=== PATIENT | female | born 2000 | race Caucasian/White ===

== ENCOUNTER 2024-02-19 18:01 | Inpatient (IN) | payer OTHER ==
[2024-02-19 18:38] VITALS: BMI 36.8
[2024-02-19] MEDS ORDERED: Lidocaine 1% (PF) 30 ML VIAL SC PRN (20:16)
[2024-02-19] MEDS ORDERED: Tranexamic Acid 1,000 MG/10 ML VIAL IVP PRN (20:16)
[2024-02-19] MEDS ORDERED: Promethazine HCl 25 MG/ML VIAL IM PRN (20:16)
[2024-02-19] MEDS ORDERED: Carboprost 250 MCG/ML AMP IM PRN (20:16)
[2024-02-19] MEDS ORDERED: Misoprostol 200 MCG TAB PR PRN (20:16)
[2024-02-19] MEDS ORDERED: Docusate 100 MG CAP PO PRN (20:16)
[2024-02-19] MEDS ORDERED: Labetalol HCl 100 MG/20 ML VIAL SLOW IVP PRN ×2 (20:16)
[2024-02-19] MEDS ORDERED: hydrALAZINE 20 MG/ML VIAL SLOW IVP PRN ×3 (20:16)
[2024-02-19] MEDS ORDERED: Ondansetron PF 4 MG/2 ML Vial IVP PRN (20:16)
[2024-02-19] MEDS ORDERED: Oxytocin 30 units/NS 500 ML 500 ML IV SCH ×3 (20:30)
[2024-02-19] MEDS ORDERED: Lactated Ringer's 1,000 ML IV SCH (20:30)
[2024-02-19] MEDS ORDERED: Penicillin G Potassium 5 MILL.UNITS in Sodium Chloride 0.9% 100 ML IVPB SCH (20:30)
[2024-02-19 21:10] LABS: Bilirubin Neg (Negative); Blood, Urine 50 (Negative); Clarity Clear (Clear); Glucose, Urine (Dipstick) Normal (Negative); Ketone, Urine Negative (Negative); Leukocyte 25 (Negative); Nitrite Negative (Negative); Protein, Urine (Dipstick) Negative (Neg-Trace); Specific Gravity, Urine 1.015 (1.005-1.030); Urobilinogen Normal mg/dL (Less than 2)
[2024-02-19 21:18] LABS: Bacteria/HPF 2+ HPF (None Seen); CAUTI Indications for Culture Pregnancy; Mucous/LPF Rare LPF (<2+); RBC/HPF 0-3 HPF (0-3); Squamous Epithelial 0-3 HPF (0-3); WBC/HPF 0-3 HPF (0-3)
[2024-02-19 21:19] LABS: Urine Culture Reflex Yes Yes
[2024-02-19 21:25] LABS: Protein, Urine Random Quant Less than 10 mg/dL (1-14)
[2024-02-19 21:34] LABS: Hemoglobin 12.4 g/dL (12.0-15.5); Mean Corpuscular HGB CONC 34.4 g/dL (32.0-36.0); Mean Corpuscular Volume 84.1 fl (81.6-98.3); Platelet Count 241 10x3/uL (150-450); RBC Distribution Width 12.7 % (11.5-14.5); Red Blood Cell (RBC) Count 4.28 10x6/uL (3.90-5.03); White Blood Cell (WBC) Count 11.7 10x3/uL (3.5-10.5)
[2024-02-19 21:44] LABS: ALT (SGPT) 17 U/L (8-55); AST (SGOT) 19 U/L (5-34); Albumin 2.5 g/dL (3.5-5.0); Alkaline Phosphatase 164 U/L (40-110); Anion Gap 14 mmol/L (10-20); BUN (Urea Nitrogen) 12 mg/dL (7.0-18.7); Bilirubin, Total 0.3 mg/dL (0.2-1.2); Calc. Creatinine Clearance 176 mL/min (70-130); Carbon Dioxide 20 mmol/L (22-29); Chloride 106 mmol/L (98-107); Estimated GFR 105; Globulin 3.5 g/dL (2.4-3.5); Glucose 140 mg/dL (70-105); Potassium 3.7 mmol/L (3.5-5.1); Sodium 136 mmol/L (136-145)
[2024-02-19 22:58] LABS: Syphilis Antibody Nonreactive (Nonreactive); Syphilis Antibody Index 0.03 S/CO (<1.00 Non-Reactive)
[2024-02-19 22:59] LABS: HBsAg Index 0.26 S/CO (0-0.99); Hep B Surf Ag - L&D Non-Reactive S/CO (NonReactive)
[2024-02-19] MEDS: Cephalexin 500 MG CAP PO SCH (23:01)
[2024-02-20] MEDS ORDERED: Dextrose 5%-Lactated Ringers 1,000 ML IV SCH (08:00)
[2024-02-20] MEDS: Penicillin G Potassium 5 MILL.UNITS in Sodium Chloride 0.9% 100 ML IVPB SCH (09:44)
[2024-02-20] MEDS: Misoprostol 100 MCG TAB ONE ×2 (09:44→13:13)
[2024-02-20] MEDS: Penicillin G 2.5 MILL.units 2.5 MILL.UNITS in Premix 1 BAG IVPB SCH (13:14)
[2024-02-20] MEDS ORDERED: Fentanyl 100 MCG/2 ML VIAL SLOW IVP SCH (19:00)
[2024-02-20] MEDS: fentaNYL 50 mcg/mL 1 mL Vial SLOW IVP PRN (19:53)
[2024-02-20] MEDS ORDERED: diphenhydrAMINE 50 MG/ML VIAL IVP PRN (21:01)
[2024-02-20] MEDS ORDERED: diphenhydrAMINE 25 MG CAP PO PRN (21:01)
[2024-02-20] MEDS ORDERED: HYDROmorphone 0.5 MG/0.5 ML SYRINGE SLOW IVP PRN (21:01)
[2024-02-20] MEDS ORDERED: Ondansetron PF 4 MG/2 ML Vial IVP PRN ×2 (21:01)
[2024-02-20] MEDS ORDERED: diphenhydrAMINE 50 MG/ML VIAL IM PRN (21:01)
[2024-02-20] MEDS ORDERED: fentaNYL 50 mcg/mL 1 mL Vial SLOW IVP PRN (21:01)
[2024-02-20] MEDS ORDERED: Meperidine HCl/PF 25 MG (1 mL) VIAL SLOW IVP PRN (21:01)
[2024-02-20] MEDS ORDERED: FENTANYL 500 MCG/10 ML VIAL 2,000 MCG in Sodium Chloride 0.9% 60 ML IV PRN (21:01)
[2024-02-20] MEDS ORDERED: Naloxone HCl 0.4 mg/ml Vial IV PRN (21:01)
[2024-02-20] MEDS ORDERED: Promethazine HCl 25 MG/ML VIAL IM PRN (21:01)
[2024-02-20] MEDS ORDERED: Ketorolac Tromethamine 30 MG (1 mL) VIAL IVP SCH (21:15)
[2024-02-20] MEDS ORDERED: Communication Order-Pharmacy FS SCH (21:15)
[2024-02-20] MEDS: FENTANYL 500 MCG/10 ML VIAL 1,000 MCG in Sodium Chloride 0.9% 30 ML IV PRN (22:09)
[2024-02-21 01:39] LABS: Hematocrit 33.8 % (34.9-44.5); Hemoglobin 11.6 g/dL (12.0-15.5); Platelet Count 225 10x3/uL (150-450)
[2024-02-21 01:54] LABS: ALT (SGPT) 13 U/L (8-55); AST (SGOT) 23 U/L (5-34); Albumin 2.3 g/dL (3.5-5.0); Alkaline Phosphatase 137 U/L (40-110); Anion Gap 14 mmol/L (10-20); BUN (Urea Nitrogen) 13 mg/dL (7.0-18.7); Bilirubin, Total 0.5 mg/dL (0.2-1.2); Calc. Creatinine Clearance 187 mL/min (70-130); Calcium 8.4 mg/dL (7.8-10.44); Carbon Dioxide 19 mmol/L (22-29); Chloride 106 mmol/L (98-107); Estimated GFR 113; Globulin 3.1 g/dL (2.4-3.5); Glucose 104 mg/dL (70-105); Protein, Total 5.4 g/dL (6.0-8.3); Sodium 135 mmol/L (136-145)
[2024-02-21] MEDS ORDERED: Misoprostol 200 MCG TAB PR PRN (03:30)
[2024-02-21] MEDS ORDERED: hydrALAZINE 20 MG/ML VIAL SLOW IVP PRN (03:30)
[2024-02-21] MEDS ORDERED: Labetalol HCl 100 MG/20 ML VIAL SLOW IVP PRN (03:30)
[2024-02-21] MEDS ORDERED: Lorazepam 2 MG/ML VIAL SLOW IVP PRN (03:30)
[2024-02-21] MEDS ORDERED: Simethicone Chewable 80 MG TAB PO PRN (03:30)
[2024-02-21] MEDS ORDERED: Calcium Gluc 4.6 MEQ/10 ML (100 MG/ML) SLOW IVP PRN (03:30)
[2024-02-21] MEDS ORDERED: Lanolin Ointment 7 GM TUBE TOP PRN (03:30)
[2024-02-21] MEDS ORDERED: NIFEdipine 10 MG CAP PO PRN ×2 (03:30)
[2024-02-21] MEDS ORDERED: Ondansetron PF 4 MG/2 ML Vial IVP PRN (03:30)
[2024-02-21] MEDS ORDERED: Tranexamic Acid 1,000 MG/10 ML VIAL IVP PRN (03:30)
[2024-02-21] MEDS ORDERED: Oxytocin 30 units/NS 500 ML 500 ML IV SCH (03:30)
[2024-02-21 04:38] LABS: Hematocrit 32.9 % (34.9-44.5); Hemoglobin 11.3 g/dL (12.0-15.5); Mean Corpuscular HGB CONC 34.3 g/dL (32.0-36.0); Mean Corpuscular Volume 84.6 fl (81.6-98.3); Mean Platelet Volume 10.9 fl (7.4-10.4); Platelet Count 215 10x3/uL (150-450); RBC Distribution Width 12.8 % (11.5-14.5); Red Blood Cell (RBC) Count 3.89 10x6/uL (3.90-5.03); White Blood Cell (WBC) Count 13.8 10x3/uL (3.5-10.5)
[2024-02-21] MEDS: CEFAZOLIN 2 GM VIAL ONE (06:11)
[2024-02-21] MEDS: Fentanyl 250 MCG/5 ML VIAL ONE (06:11)
[2024-02-21] MEDS: Lidocaine 2% MPF 10 ML AMP (For Epidural Use) ONE (06:11)
[2024-02-21] MEDS: SUCCINYLCHOLINE/SOD CL,ISO/PF 200 MG/10 ML SYRINGE FS ONE (06:12)
[2024-02-21] MEDS: PROPOFOL 20 ML ONE (06:12)
[2024-02-21] MEDS: Oxytocin 10 UNITS/ML VIAL ONE ×2 (06:12→06:14)
[2024-02-21] MEDS: Ondansetron PF 4 MG/2 ML Vial ONE (06:12)
[2024-02-21] MEDS: Lidocaine 1% PF 5 ML VIAL ONE (06:12)
[2024-02-21] MEDS: Ketorolac Tromethamine 30 MG (1 mL) VIAL ONE (06:14)
[2024-02-21] MEDS: ePHEDrine Sulfate 50 MG/10 ML VIAL ONE (06:14)
[2024-02-21] MEDS: Acetaminophen 500 MG TAB PO SCH (06:15)
[2024-02-21] MEDS: Ketorolac Tromethamine 30 MG (1 mL) VIAL IVP SCH (06:47)
[2024-02-21] MEDS: Ferrous Sulfate 325 MG TAB PO SCH (12:05)
[2024-02-21] MEDS: Docusate 100 MG CAP PO SCH (12:05)
[2024-02-21] MEDS: Prenatal Vitamin 1 TAB PO SCH (12:05)
[2024-02-21] MEDS: HYDROcodone/Acetaminophen 5/325 mg Tablet PO PRN (15:35)
[2024-02-21] MEDS: Ibuprofen 800 MG TAB PO SCH (17:39)
[2024-02-21] MEDS: Boostrix 0.5 ML (Tdap) VIAL (>/=7 yrs of age) IM ONE (22:26)
[2024-02-22 04:15] VITALS: BP 121/67; TEMP 98.2
== END 2024-02-22 12:25 | disposition home or self-care (01) | DRG 787 ==
LOC: CSHLD/OP 18:01 → CSHLD 02-20 00:12 → CSHPP 02-21 03:55
PROVIDERS: ADMIT Family Medicine; ATTEND Family Medicine
PROC: 10D00Z1 Extraction of Products of Conception, Low, Open Approach (ICD-10-PCS; principal; 2024-02-20)
PROC: 3E033VJ Introduction of Other Hormone into Peripheral Vein, Percutaneous Approach (ICD-10-PCS; 2024-02-20)
PROC: 3E033XZ Introduction of Vasopressor into Peripheral Vein, Percutaneous Approach (ICD-10-PCS; 2024-02-20)
DX: O36.8130 Decreased fetal movements, third trimester, not applicable or unspecified (principal); N39.0 Urinary tract infection, site not specified; O86.20 Urinary tract infection following delivery, unspecified; O13.4 Gestational [pregnancy-induced] hypertension without significant proteinuria, complicating childbirth; O76 Abnormality in fetal heart rate and rhythm complicating labor and delivery; Z3A.39 39 weeks gestation of pregnancy; Z37.0 Single live birth; D36.10 Benign neoplasm of peripheral nerves and autonomic nervous system, unspecified; O99.214 Obesity complicating childbirth; B95.4 Other streptococcus as the cause of diseases classified elsewhere
CPT/HCPCS: 36415; 51702; 76819; 80053; 81001; 82570; 84156; 85014; 85018; 85027; 85049; 86780; 86850; 86900; 86901; 87077; 87086; 87340; 99285; J1885; J2405; J2540; J2590; J2704; J3010; J3490

== ENCOUNTER 2024-02-24 00:46 | Emergency (ER) | payer OTHER ==
[2024-02-24 02:04] LABS: #Basophils 0.02 10x3/uL (0.0-0.2); #Monocytes 0.59 10x3/uL (0.0-1.1); #Neutrophils 6.58 10x3/uL (1.5-8.4); %Basophils 0.2 % (0.0-2.0); %Eosinophils 3.2 % (0.0-6.0); %Lymphocytes 19.8 % (18.0-47.0); %Monocytes 6.3 % (0.0-10.0); %Neutrophils 69.8 % (40.0-75.0); Hematocrit 33.7 % (34.9-44.5); Hemoglobin 11.3 g/dL (12.0-15.5); Mean Corpuscular HGB CONC 33.5 g/dL (32.0-36.0); Mean Corpuscular Hemoglobin 28.5 pg (27.0-33.0); Mean Corpuscular Volume 84.9 fl (81.6-98.3); Mean Platelet Volume 10.3 fl (7.4-10.4); Platelet Count 291 10x3/uL (150-450); RBC Distribution Width 12.6 % (11.5-14.5); Red Blood Cell (RBC) Count 3.97 10x6/uL (3.90-5.03); White Blood Cell (WBC) Count 9.4 10x3/uL (3.5-10.5)
[2024-02-24 02:12] LABS: INR-International Normal Ratio 0.9; PTT 23.5 sec (22.0-33.0)
[2024-02-24 02:15] LABS: ALT (SGPT) 18 U/L (8-55); AST (SGOT) 30 U/L (5-34); Albumin 3.1 g/dL (3.5-5.0); Alkaline Phosphatase 139 U/L (40-110); Anion Gap 16 mmol/L (10-20); BUN (Urea Nitrogen) 12 mg/dL (7.0-18.7); Bilirubin, Total 0.4 mg/dL (0.2-1.2); Calc. Creatinine Clearance 0 mL/min (70-130); Calcium 9.2 mg/dL (7.8-10.44); Carbon Dioxide 22 mmol/L (22-29); Chloride 106 mmol/L (98-107); Estimated GFR 106; Globulin 3.5 g/dL (2.4-3.5); Glucose 103 mg/dL (70-105); Magnesium 1.9 mg/dL (1.6-2.6); Potassium 3.7 mmol/L (3.5-5.1); Protein, Total 6.6 g/dL (6.0-8.3); Sodium 140 mmol/L (136-145)
[2024-02-24 02:21] LABS: Troponin I Less than 0.010 ng/mL (< 0.028)
[2024-02-24 03:36] LABS: Bilirubin Neg (Negative); Blood, Urine 25 (Negative); Glucose, Urine (Dipstick) Normal (Negative); Ketone, Urine Negative (Negative); Leukocyte Negative (Negative); Nitrite Negative (Negative); Protein, Urine (Dipstick) Negative (Neg-Trace); Specific Gravity, Urine 1.015 (1.005-1.030); Urobilinogen Normal mg/dL (Less than 2); pH, Urine 6.5 (5.0-9.0)
[2024-02-24] MEDS ORDERED: Labetalol HCl 100 MG/20 ML VIAL ONE (03:46)
[2024-02-24 03:54] LABS: CAUTI Indications for Culture Pelvic or flank pain; Clarity Clear (Clear); Protein, Urine Random Quant Less than 10 mg/dL (1-14); RBC/HPF 0-3 HPF (0-3); Squamous Epithelial 0-3 HPF (0-3); WBC/HPF 0-3 HPF (0-3)
[2024-02-24 03:55] LABS: Bacteria/HPF None Seen HPF (None Seen); Urine Culture Reflex No No
== END 2024-02-24 04:44 | disposition home or self-care (01) ==
LOC: CSHERS 00:46
DX: O14.95 Unspecified pre-eclampsia, complicating the puerperium (principal)
CPT/HCPCS: 71045; 80053; 81001; 82570; 83735; 83880; 84156; 84484; 84550; 85025; 85610; 85730; 93005; 96374